=== PATIENT | female | born 1965 | race Caucasian/White ===

== ENCOUNTER 2017-12-05 15:09 | Emergency (ER) | payer SELFPAY ==
[2017-12-05 15:44] VITALS: RESP 16; TEMP 98.1; O2SAT 98
[2017-12-05 15:46] VITALS: BMI 33.3
[2017-12-05] MEDS ORDERED: Oxycodone/Acetaminophen 5/325 mg Tab PO STA (15:59)
--- NOTE | 2017-12-05 16:05 | ED PDOC ---
Arrival/HPI - General Chief Complaint: Back Pain Time Seen by Provider: 12/05/17 15:43 Historian: Patient, Family (daughter), Inside Plant Supervisor (daughter translating) - History of Present Illness Narrative History of Present Illness (Text): 12/05/17 16:00 per daughter who's translating for mother, states pt presents with ~ few days onset of left flank/back pain, at times pain radiating to lower abd/crampy; stating pain is intermittent lasting for minutes; pt states since her worsening pain 2 days ago, noted right leg/knee pain and noted knee swelling; pt states anytime she is walking on stairs and/or walking in general, right knee pain is worse; pt states pain is at most 7-8/10; pt states her knee pain has been off and on for at least 1 week, worsening over the last few days; pt states intact appetite, no fever/chills/sweats, no cp/sob/palpitations; pt states 2 days ago, pain to her left back/flank was severe causing patient to be very dizzy and she was found by the daughter to have passed out; pt states no urinary/bowel changes , no frequency/hesistancy, no gross bleeding, no rashes; pt states she has not seen a PCP for a long time; pt also just got her insurance pt is here for further eval pt's without other complaints PCP: NONE pt is right hand dominate Time/Duration: < week (1) few days of left flank/back pain; 2) ~ 1 week of right knee pain) Symptom Onset: Gradual Symptom Course: Intermittent Quality: Tightness, Cramping Severity Level: 7, Severe Activities at Onset: Rest, Other (walking/exertion) Context: Home Past Medical History - Provider Review Nursing Documentation Reviewed: Yes - Travel History Have you recently traveled outside [place] w/in the past 3 mons?: No - Past History Past History: No Previous - Infectious Disease Hx of Infectious Diseases: None - Reproductive Menopause: Yes - Psychiatric Hx Substance Use: No Family/Social History - Physician Review Nursing Documentation Reviewed: Yes Family/Social History: No Known Family HX Smoking Status: Never Smoked Hx Alcohol Use: No Hx Substance Use: No Hx Substance Use Treatment: No Allergies/Home Meds Allergies/Adverse Reactions: Allergies No Known Allergies Allergy (Verified 12/05/17 15:45) Review of Systems - Review of Systems Constitutional: Normal Eyes: Normal ENT: Normal Respiratory: Normal Cardiovascular: Normal Gastrointestinal: Normal Genitourinary Female: Normal Musculoskeletal: Back Pain, Other (left flank pain; knee pain right >> left) Skin: Normal Neurological: Normal Endocrine: Normal Hemo/Lymphatic: Normal Psychiatric: Normal Physical Exam Vital Signs Reviewed: Yes Vital Signs Temp Pulse Resp BP Pulse Ox 12/05/17 20:08 98.1 F 72 16 138/92 H 98 12/05/17 15:44 98.1 F 90 16 147/85 98 Temperature: Afebrile Blood Pressure: Normal Pulse: Regular Respiratory Rate: Normal Appearance: Positive for: Well-Appearing, Non-Toxic, Other (resting in bed, alert/awake, mildly uncomfortable, NAD, cooperative, follows command with ease) Pain Distress: None Mental Status: Positive for: Alert and Oriented X 3 - Systems Exam Head: Present: Atraumatic, Normocephalic Pupils: Present: PERRL, Other (visual field intact b/l, no nystagmus, no photophobia) Extroacular Muscles: Present: EOMI Conjunctiva: Present: Normal Ears: Present: Normal Mouth: Present: Moist Mucous Membranes, Normal Teeth Pharnyx: Present: Normal Nose (External): Present: Atraumatic Nose (Internal): Present: Normal Inspection Neck: Present: Normal Range of Motion, Trachea Midline, Other (no step off, no meningeal signs). No: MIDLINE TENDERNESS Respiratory/Chest: Present: Clear to Auscultation, Good Air Exchange, Other ( CTA b/l, no w/r/r) Cardiovascular: Present: Regular Rate and Rhythm, Normal S1, S2. No: Murmurs Abdomen: Present: Normal Bowel Sounds, Other (well nourished female, no focal tenderness, no masses/rebound/guarding/rigidity, no billy's sign, no mcburney' s point tenderness). No: Tenderness Back: Present: Normal Inspection, CVA Tenderness (left CVAT, no lesions/ ulcerations). No: Midline Tenderness Upper Extremity: Present: Normal Inspection, Normal ROM, NORMAL PULSES, Neurovascularly Intact, Capillary Refill < 2s Lower Extremity: Present: Normal Inspection, NORMAL PULSES, Neurovascularly Intact, Capillary Refill < 2 s, Other (decr ROM to right knee due to pain, + diffuse anterior/posterior knee pain, mild swelling to the superior aspect of right knee, no laxity, no gross deformities; strength 5/5 grossly intact in all limbs, neurovasc intact b/l) Neurological: Present: GCS=15, CN II-XII Intact, Speech Normal, Other (no slurr speech (as per daughter), CNII-XII WNL, no facial asymmetries, NIH stroke scale ~0) Skin: Present: Warm, Normal Color, Other (cap refill < 1sec, no ulcerations, no petechiae). No: Rashes Psychiatric: Present: Alert, Oriented x 3 Medical Decision Making ED Course and Treatment: 12/05/17 16:00 Impression: syncope, left flank/back pain, right knee pain i have consider all the differential diagnosis regarding pt's chief medical complaints/clinical findings, including but are not limited to: syncope, left flank/back pain, right knee pain A/P: syncope, left flank/back pain, right knee pain - labs - iv - xray - us - ua - ekg - observe - supportive care 12/05/17 1730 pt is currently awaiting u/s xray results pt is not in acute distress 1830 pt is doing well pt states pain only returns if she is bearing weight (to right knee) pt is made aware of her medical results pt is encouraged fluids pt is encouraged min weight bearing, RICE txt pt will f/u as directed pt will be discharged home Re-evaluation Time: 19:00 Reassessment Condition: Improving,but remains with symptoms - Lab Interpretations Lab Results: 12/05/17 16:50 12/05/17 16:50 Lab Results 12/05/17 16:50: Urine Color Yellow, Urine Appearance Turbid, Urine pH 6.5, Ur Specific [place] 1.015, Urine Protein Negative, Urine Glucose (UA) Negative, Urine Ketones Negative, Urine Blood Trace-intact H, Urine Nitrate Negative, Urine Bilirubin Negative, Urine Urobilinogen 0.2, Ur Leukocyte Esterase Moderate H, Urine RBC 0 - 2, Urine WBC 5 - 10, Ur Epithelial Cells 4 - 5, Urine Bacteria Few 12/05/17 16:50: Sodium 141, Potassium 4.1, Chloride 103, Carbon Dioxide 26, Anion Gap 16, BUN 10, Creatinine 0.6 L, Est GFR ( Amer) > 60, Est GFR ( Non-Af Amer) > 60, Random Glucose 112 H, Calcium 10.2, Total Bilirubin 0.3, AST 18, ALT 21, Alkaline Phosphatase 40, Troponin I < 0.01, Total Protein 7.9, Albumin 4.3, Globulin 3.6, Albumin/Globulin Ratio 1.2 12/05/17 16:50: WBC 3.2 L, RBC 4.57, Hgb 12.4, Hct 38.7, MCV 84.7, MCH 27.1, MCHC 32.0, RDW 13.5, Plt Count 223, MPV 9.7, Gran % 38.7 L, Lymph % (Auto) 48.3 H, [place] % (Auto) 11.4 H, Eos % (Auto) 1.3 L, Baso % (Auto) 0.3, Gran # 1.23 L, Lymph # (Auto) 1.5, [place] # (Auto) 0.4, Eos # (Auto) 0.0, Baso # (Auto) 0.01 I have reviewed the lab results: Yes Interpretation: Abnormal lab values (+ UTI) - RAD Interpretation Narrative RAD Interpretations (Text): 12/05/17 18:36 US of Extremity reviewed by radiologist, shows no sonographic evidence for deep venous thrombosis in the visualized segments of the right lower extremity. 12/05/17 19:50 right knee: mild osteopenia, no acute fx, no dislocation noted, as read by me L/S xray: straightening, no acute fx, no subluxation noted, as read by tn Radiology Orders: 12/05/17 15:57 LS SPINE AP/LAT [RAD] Stat DUPLEX LOWER EXTRM VEIN RIGHT [US] Stat 12/05/17 15:58 KNEE RIGHT 2 VIEWS (AP & LAT) [RAD] Stat Filter Press Operator: Radiologist - EKG Interpretation EKG Interpretation (Text): 12/05/17 1930 NSR at 70 bpm, LAD, no ectopy, inverted T in leads III, V1, V3, no st changes, ABNL EKG; no old ekg to compare with Interpreted by ED Physician: Yes Type: 12 lead EKG Comparison: No previous EKG avail. - Medication Orders Current Medication Orders: Discontinued Medications Ibuprofen (Motrin Tab) 400 mg PO STAT STA Stop: 12/05/17 16:00 Last Admin: 12/05/17 16:38 Dose: 400 mg Nitrofurantoin Macrocrystals (Macrobid) 100 mg PO ONCE ONE Stop: 12/05/17 19:37 Last Admin: 12/05/17 20:03 Dose: 100 mg Oxycodone/Acetaminophen (Percocet 5/325 Mg Tab) 1 tab PO STAT STA Stop: 12/05/17 16:00 Last Admin: 12/05/17 16:37 Dose: 1 tab MAR Pain Assessment Document 12/05/17 16:37 GMD (Rec: 12/05/17 16:38 GMD [id number]) Pain Reassessment Is this a pain reassessment? No Disposition/Present on Arrival - Present on Arrival Any Indicators Present on Arrival: No History of DVT/PE: No History of Uncontrolled Diabetes: No Urinary Catheter: No History of Decub. Ulcer: No History Surgical Site Infection Following: None - Disposition Have Diagnosis and Disposition been Completed?: Yes Diagnosis: UTI (urinary tract infection), Knee pain, right, Lumbar strain Disposition: HOME/ ROUTINE Disposition Time: 19:37 Patient Plan: Discharge Condition: STABLE Discharge Instructions (ExitCare): Urinary Tract Infections in Adults, Low Back Pain in Adults, Back Exercises, Knee Pain Print Language: FRENCH Additional Instructions: Make sure to see your doctor in 1-2 days DRINK PLENTY OF FLUIDS REST YOUR knee ICE your knee 15min/hr over the next 1-2 days AVOID heavy weight bearing/prolonged standing take your medications as prescribed RETURN TO ED IF worse pain, cant breath, persistent vomiting, high fever >101- 102 for hours, altered behavior, unable to urinate, heavy/persistent bleeding, passing out, chest pain, or other medical emergencies Prescriptions: Ibuprofen [Motrin] 400 mg PO QID PRN #30 tab PRN Reason: Pain, Mild (1-3) Nitrofurantoin Macrocrystals [Macrobid] 100 mg PO BID #13 cap oxyCODONE/Acetaminophen [Percocet 5/325 mg Tab] 1 tab PO TID PRN #12 tab PRN Reason: Pain, Moderate (4-7) Referrals: Vinnie Barone, [Primary Care Provider] - Follow up with primary [facility] [Outside] - Follow up with primary Michael Barron MD [Staff Provider] - Follow up with primary Forms: [employer] (Moldovan)
[2017-12-05 17:06] LABS: ALB/GLOB RATIO 1.2 (1.1-1.8); ALBUMIN 4.3 g/dL (3.0-4.8); ALT/SGPT 21 U/L (7-56); AST/SGOT 18 U/L (14-36); BLOOD UREA NITROGEN 10 mg/dL (7-21); CALCIUM 10.2 mg/dL (8.4-10.5); GFR AFRICAN-AMERICAN > 60; GFR NON-AFRICAN AMERICAN > 60
[2017-12-05 17:07] LABS: BASO # 0.01 K/mm3 (0.0-2.0); BASO % 0.3 % (0.0-3.0); EOS % 1.3 % (1.5-5.0); GRAN # 1.23 (1.4-6.5); GRAN % 38.7 % (50.0-68.0); HEMOGLOBIN 12.4 g/dL (12.0-16.0); LYMPH # 1.5 (1.2-3.4); LYMPH % 48.3 % (22.0-35.0); MEAN CELL VOLUME 84.7 fl (80.0-105.0); MEAN CORPUSCULAR HEMOGLOBIN 27.1 pg (25.0-35.0); MEAN PLATELET VOLUME 9.7 fl (7.0-11.0); MONO # 0.4 (0.1-0.6); MONO % 11.4 % (1.0-6.0); RBC 4.57 10^6/uL (3.5-6.1); RED CELL DISTRIBUTION WIDTH 13.5 % (11.5-14.5); WHITE BLOOD COUNT 3.2 10^3/ul (4.5-11.0)
[2017-12-05 17:08] LABS: PH,URINE 6.5 (4.7-8.0); URINE BILIRUBIN NEGATIVE (NEGATIVE); URINE BLOOD TRACE-INTACT (NEGATIVE); URINE GLUCOSE (UA) NEGATIVE (NEGATIVE); URINE LEUKOCYTE ESTERASE MODERATE Leu/uL (NEGATIVE); URINE NITRATE NEGATIVE (NEGATIVE); URINE PROTEIN NEGATIVE mg/dL (<30 mg/dL); URINE UROBILINOGEN 0.2 E.U./dL (<1 E.U./dL)
[2017-12-05 17:11] LABS: URINE APPEARANCE TURBID (CLEAR); URINE COLOR YELLOW (YELLOW)
[2017-12-05 17:14] LABS: URINE BACTERIA FEW (NEG); URINE RBC 0 - 2 /hpf (0-2)
[2017-12-05 17:17] LABS: TROPONIN I < 0.01 ng/mL
--- NOTE | 2017-12-05 18:29 | US ---
PROCEDURE: Right lower extremity venous US HISTORY: Leg pain and swelling. Evaluate for DVT. PHYSICIAN(S): Anish Almaraz M.D. TECHNIQUE: Duplex sonography and color-flow Doppler with graded compression were used to evaluate the deep venous system of the right lower extremity. FINDINGS: The visualized deep venous system of the right lower extremity is sonographically normal and compressible. Normal waveforms and augmentation are seen. There is no sonographic evidence for deep venous thrombosis in the visualized segments of the right lower extremity. IMPRESSION: 1. No sonographic evidence for deep venous thrombosis in the visualized segments of the right lower extremity.
[2017-12-05 20:08] VITALS: BP 138/92; PULSE 72
--- NOTE | 2017-12-06 08:01 | RAD ---
PROCEDURE: Right Knee Radiographs. HISTORY: fall, knee pain COMPARISON: None. FINDINGS: BONES: Normal. No fracture. JOINTS: Normal. No osteoarthritis. JOINT EFFUSION: None. OTHER FINDINGS: None. IMPRESSION: Normal radiographs of the right knee.
--- NOTE | 2017-12-06 08:02 | RAD ---
PROCEDURE: Radiographs of the Lumbar Spine. HISTORY: fall, lower back pain COMPARISON: No prior. FINDINGS: BONES: Normal alignment. No listhesis. No fracture. DISC SPACES: Unremarkable. OTHER FINDINGS: None. IMPRESSION: Unremarkable radiographs of the lumbar spine.
--- NOTE | 2017-12-06 09:35 | CARD ---
APPROVED REPORT EKG Measurement Heart [id number] <Conclusion> Normal sinus rhythm Nonspecific T wave abnormality Abnormal ECG
== END 2017-12-05 20:20 | disposition home or self-care (01) ==
LOC: ED 15:09
DX: N39.0 Urinary tract infection, site not specified (principal); M25.561 Pain in right knee; S39.012A Strain of muscle, fascia and tendon of lower back, initial encounter; X58.XXXA Exposure to other specified factors, initial encounter